=== PATIENT | female | born 1980 | race American Indian/Alaskan Native ===

== ENCOUNTER 2021-12-23 19:37 | Emergency (ER) | payer OTHER ==
[2021-12-23 20:37] VITALS: BP 131/84
[2021-12-23] MEDS ORDERED: IBUPROFEN 600 MG TAB PO ONE (22:03)
[2021-12-23] MEDS ORDERED: ONDANSETRON 4 MG ODT TAB PO ONE (22:03)
[2021-12-23] MEDS ORDERED: ACETAMINOPHEN 500 MG TAB PO ONE (22:03)
--- NOTE | 2021-12-23 22:59 | XRay Report ---
CHEST 2 VIEWS INDICATION / CLINICAL INFORMATION: COUGH, COVID-19 +VE TEST. COMPARISON: 3 FINDINGS: SUPPORT DEVICES: None. HEART / MEDIASTINUM: Heart size and mediastinal contour appear within normal limits. LUNGS / PLEURA: No significant pulmonary or pleural abnormality. No pneumothorax. BONES: No significant osseous abnormality. ADDITIONAL FINDINGS: No significant additional findings. IMPRESSION: 1. No active cardiopulmonary disease. Signer Name: Brian Butcher II, MD Signed: 12/23/2021 10:54 PM Workstation Name: [id number]
--- NOTE | 2021-12-23 23:06 | Emergency Department Report ---
ED General Adult HPI - General Chief complaint: Fever Stated complaint: FEVER/BODYACHES Source: patient Mode of arrival: Ambulatory Limitations: No Limitations - History of Present Illness Initial comments: Patient is a 41-year-old -[place] female with no past medical history presents to the ED with complaint of acute onset persistent diffuse body aches and pains, subjective fever and chills, nausea, nasal and sinus congestion, persistent dry cough, lack of appetite and generalized weakness for the last 2 days. Patient states that she tested positive for COVID-19 viral infection about 12 hours ago. Patient states that her symptoms have worsened in the last 6 hours. Patient denies dizziness, syncope, chest pain, shortness of breath, abdominal pain, diarrhea, dysuria, urinary frequency and urgency or sore throat. MD Complaint: Body aches and pains, fever, chills, headache, dry cough, COVID- positive -: Sudden, days(s) (2) Location: chest Radiation: non-radiation Severity scale (0 -10): 8 Quality: aching, sharp Consistency: constant Improves with: none Worsens with: none Associated Symptoms: denies other symptoms, cough, fever/chills, headaches, loss of appetite, malaise, nausea/vomiting. denies: confusion, chest pain, diaphoresis, rash, seizure, shortness of breath, weakness, other Treatments Prior to Arrival: none - Related Data Previous Rx's Medication Instructions Recorded Last Taken Type Acetaminophen [Tylenol] 500 mg PO Q6HR PRN #40 tablet 12/23/21 Unknown Rx Ascorbic Acid [Vitamin C] 1,000 mg PO BID #30 tab 12/23/21 Unknown Rx Benzonatate [Tessalon Perles] 100 mg PO Q8HR #30 cap 12/23/21 Unknown Rx Cetirizine HCl [Zyrtec 10mg tab] 10 mg PO DAILY #30 tab 12/23/21 Unknown Rx Ibuprofen [Motrin] 600 mg PO Q8H PRN #30 tablet 12/23/21 Unknown Rx Ondansetron [Zofran Odt] 4 mg PO Q8HR PRN #15 tab.rapdis 12/23/21 Unknown Rx Allergies Allergy/AdvReac Type Severity Reaction Status Date / Time No Known Allergies Allergy Unverified 12/23/21 20:32 ED Review of Systems ROS: Stated complaint: FEVER/BODYACHES Other details as noted in HPI Constitutional: chills, fever, malaise Eyes: denies: eye pain, eye discharge, vision change ENT: congestion. denies: ear pain, throat pain Respiratory: cough. denies: shortness of breath, wheezing Cardiovascular: denies: chest pain, palpitations Endocrine: no symptoms reported Gastrointestinal: nausea. denies: abdominal pain, vomiting, diarrhea Genitourinary: denies: urgency, dysuria, discharge Musculoskeletal: arthralgia, myalgia. denies: back pain, joint swelling Skin: denies: rash, lesions Neurological: headache. denies: weakness, paresthesias Psychiatric: denies: anxiety, depression Hematological/Lymphatic: denies: easy bleeding, easy bruising ED Past Medical Hx - Past Medical History Previous Medical History?: No - Surgical History Past Surgical History?: No - Social History Smoking Status: Unknown if ever smoked - Medications Home Medications: Home Medications Medication Instructions Recorded Confirmed Last Taken Type Acetaminophen [Tylenol] 500 mg PO Q6HR PRN #40 tablet 12/23/21 Unknown Rx Ascorbic Acid [Vitamin C] 1,000 mg PO BID #30 tab 12/23/21 Unknown Rx Benzonatate [Tessalon Perles] 100 mg PO Q8HR #30 cap 12/23/21 Unknown Rx Cetirizine HCl [Zyrtec 10mg tab] 10 mg PO DAILY #30 tab 12/23/21 Unknown Rx Ibuprofen [Motrin] 600 mg PO Q8H PRN #30 tablet 12/23/21 Unknown Rx Ondansetron [Zofran Odt] 4 mg PO Q8HR PRN #15 tab.rapdis 12/23/21 Unknown Rx ED Physical Exam - General Limitations: No Limitations General appearance: alert, in no apparent distress - Head Head exam: Present: atraumatic, normocephalic, normal inspection - Eye Eye exam: Present: normal appearance, PERRL, EOMI Pupils: Present: normal accommodation - ENT ENT exam: Present: normal orophraynx, mucous membranes moist, TM's normal bilaterally, normal external ear exam, other (Grossly congested nasal passages) - Neck Neck exam: Present: normal inspection, full ROM. Absent: tenderness, lymphadenopathy - Respiratory Respiratory exam: Present: normal lung sounds bilaterally. Absent: respiratory distress, wheezes, rales, rhonchi, chest wall tenderness, accessory muscle use, decreased breath sounds, prolonged expiratory - Cardiovascular Cardiovascular Exam: Present: regular rate, normal rhythm, normal heart sounds. Absent: systolic murmur, diastolic murmur, rubs, gallop - GI/Abdominal GI/Abdominal exam: Present: soft, normal bowel sounds. Absent: tenderness, guarding, rebound, hyperactive bowel sounds, hypoactive bowel sounds, organomegaly, mass - Extremities Exam Extremities exam: Present: normal inspection, full ROM, normal capillary refill. Absent: tenderness, pedal edema, joint swelling, calf tenderness - Back Exam Back exam: Present: normal inspection, full ROM. Absent: tenderness, CVA tenderness (R), muscle spasm, paraspinal tenderness, vertebral tenderness - Neurological Exam Neurological exam: Present: alert, oriented X3, CN II-XII intact, normal gait, reflexes normal - Psychiatric Psychiatric exam: Present: normal affect, normal mood - Skin Skin exam: Present: warm, dry, intact, normal color. Absent: rash ED Course Vital Signs 12/23/21 20:33 Temperature 99.7 F H Pulse Rate 95 H Respiratory 16 Rate Blood Pressure 131/84 [Right] O2 Sat by Pulse 100 Oximetry ED Medical Decision Making - Radiology Data Radiology results: report reviewed, image reviewed [facility] [address] [place] [address] XRay Report Signed Patient: PANCHITO MARCOS MR#: [id number] : 1980 Acct:[id number] Age/Sex: 41 / F ADM Date: 12/23/21 Loc: ED Attending Dr: Ordering Physician: GOPI KENDALL Date of Service: 12/23/21 Procedure(s): XR chest routine 2V Accession Number(s): [id number] cc: GOPI KENDALL Fluoro Time In Minutes: CHEST 2 VIEWS INDICATION / CLINICAL INFORMATION: COUGH, COVID-19 +VE TEST. COMPARISON: 3 FINDINGS: SUPPORT DEVICES: None. HEART / MEDIASTINUM: Heart size and mediastinal contour appear within normal limits. LUNGS / PLEURA: No significant pulmonary or pleural abnormality. No pneumo thorax. BONES: No significant osseous abnormality. ADDITIONAL FINDINGS: No significant additional findings. IMPRESSION: 1. No active cardiopulmonary disease. Signer Name: Yun Butcher II, MD Signed: 12/23/2021 10:54 PM Workstation Name: [id number] Transcribed By: TIESHA Dictated By: YUN BUTCHER II, MD Electronically Authenticated By: YUN BUTCHER II, MD Signed Date/Time: 12/23/212253 DD/ 53 TD/TT: Print Cancel - Medical Decision Making This is a 41-year-old -[place] female with no past medical history presents to the ED with complaint of acute onset persistent diffuse body aches and pains, subjective fever and chills, nausea, nasal and sinus congestion, persistent dry cough, lack of appetite and generalized weakness for the last 2 days. Patient states that she tested positive for COVID-19 viral infection about 12 hours ago. Patient states that her symptoms have worsened in the last 6 hours. In the ED, patient is alert and oriented x3 and is not in any distress. Chest x-ray showed no acute cardiopulmonary abnormalities or pneumonitis. Patient was treated for pain in the ED and on reevaluation, patient felt better and was discharged home on medications. Patient was advised to self quarantine at home for 5 days after testing positive for COVID-19 viral infection. Patient was advised to return to the ED immediately if symptoms get worse, otherwise follow-up with her primary care physician in 7 to 10 days for reevaluation. - Differential Diagnosis URI; COVID-19; bronchitis; pneumonia; Critical care attestation.: If time is entered above; I have spent that time in minutes in the direct care of this critically ill patient, excluding procedure time. ED Disposition Clinical Impression: Upper respiratory tract infection due to COVID-19 virus, Acute bronchitis due to COVID-19 virus, Fever and chills Disposition: 01 HOME / SELF CARE / HOMELESS Is pt being admited?: No Does the pt Need Aspirin: No Condition: Stable Instructions: Acute Bronchitis (ED), Upper Respiratory Infection, Adult, [id number], COVID-19 Frequently Asked Questions, Cough, Adult, [id number], Acute Bronchitis, Adult, [id number], COVID-19: How to Protect Yourself and Others - CDC, Fever, Adult, [id number] Additional Instructions: Chest x-ray showed no acute cardiopulmonary abnormalities or pneumonitis. Take medication with food, drink plenty of fluids, follow-up with your primary care physician in 7 to 10 days for reevaluation. Return to the ED immediately if symptoms get worse. Prescriptions: Acetaminophen [Tylenol] 500 mg PO Q6HR PRN #40 tablet PRN Reason: Pain , Severe (7-10) Ibuprofen [Motrin] 600 mg PO Q8H PRN #30 tablet PRN Reason: Pain Benzonatate [Tessalon Perles] 100 mg PO Q8HR #30 cap Ascorbic Acid [Vitamin C] 1,000 mg PO BID #30 tab Ondansetron [Zofran Odt] 4 mg PO Q8HR PRN #15 tab.rapdis PRN Reason: Nausea Cetirizine HCl [Zyrtec 10mg tab] 10 mg PO DAILY #30 tab Forms: Work/School Release Form(ED) Time of Disposition: 23:20 Print Language: MALTESE
== END 2021-12-24 00:41 | disposition home or self-care (01) ==
LOC: ED 19:37
DX: J06.9 Acute upper respiratory infection, unspecified (principal); J20.8 Acute bronchitis due to other specified organisms; R50.9 Fever, unspecified; Z20.822 Contact with and (suspected) exposure to COVID-19
CPT/HCPCS: 71046; 99283; J3490; Q0162